=== PATIENT | male | born 1965 | race Caucasian/White ===

== ENCOUNTER 2023-08-23 09:15 | Emergency (ER) | payer OTHER, SELFPAY ==
[2023-08-23 09:18] VITALS: BP 199/108
[2023-08-23 09:30] VITALS: BMI 27.8
[2023-08-23 09:45] LABS: % Basophils 0.6 % (0-2); % Eosinophils 2.3 % (0-6); % Immature Granulocytes 0.4 % (0-0.5); % Lymphocytes 7.9 % (20.5-51.1); % Monocytes 9.7 % (1.7-9.3); % Neutrophils 79.1 % (42.2-75.2); Absolute Basophils 0.1 10^3/uL (0-0.2); Absolute Eosinophils 0.2 10^3/uL (0-0.7); Absolute Lymphocytes 0.7 10^3/uL (1.2-3.4); Absolute Monocytes 0.9 10^3/uL (0.1-0.6); Absolute Neutrophils 7.1 10^3/uL (1.4-6.5); Hematocrit 43.5 % (39.0-52.0); Hemoglobin 15.1 g/dL (13.0-18.0); Mean Corp Hgb Conc. 34.7 g/dL (33.0-37.0); Mean Corpuscular Hgb 30.5 pg (27.0-31.0); Mean Corpuscular Volume 87.9 fL (80.0-94.0); Mean Platelet Volume 9.3 fL (7.4-10.4); Nucleated Red Blood Cells % 0 % (-); Platelet Count 350 10^3/uL (130-400); Red Blood Cell Count 4.95 10^6/uL (4.70-6.10); Red Cell Dist. Width 13.1 % (11.5-14.5)
[2023-08-23 10:00] VITALS: BP 162/112
[2023-08-23 10:04] LABS: COVID-19 Antigen Positive (Negative)
[2023-08-23 10:05] LABS: ALT (SGPT) 20 U/L (0-50); AST (SGOT) 24 U/L (17-59); Albumin 4.5 g/dl (3.5-5.0); Alkaline Phosphatase 93 U/L (38-126); Blood Urea Nitrogen 15 mg/dl (9-20); Calcium 9.8 mg/dl (8.4-10.2); Carbon Dioxide 23 mmol/L (22-30); Chloride 106 mmol/L (98-107); Glucose 99 mg/dl (70-99); Potassium 4.4 mmol/L (3.5-5.1); Sodium 138 mmol/L (135-145); Total Bilirubin 0.5 mg/dl (0.2-1.3); Total Protein 7.3 g/dl (6.3-8.2); eGFR > 60.00
--- NOTE | 2023-08-23 10:10 | ED.GENMED ---
History of Present Illness
General
Chief Complaint: Cold/Flu/URI Symptoms
Source: patient
Exam Limitations: none
Time Seen by Provider: 08/23/23 09:25
History of Present Illness
History of Present Illness:
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 Patient's has COVID he is concerned that he is COVID-positive and is concerned because he
does not have a spleen I recommend that he come to the ER. He does not feel ill. He reports he quit 1 year ago and felt worse and took no medication during that time. He denies any shortness of breath. He has not had a fever. He has nasal
congestion and feels achy. He is drinking and eating.
Past History
Past History
ED Past Medical History: None
ED Past Surgical History: Other (Splenectomy)
Social History
Tobacco: Smoker
Alcohol: Occasional
Drug: None
Personal:
Employment: Employed
Review of Systems
Review of Systems
Allergies reviewed?: Yes
All Other Systems: ROS reviewed and negative except as documented in HPI and ROS
Constitutional: Denies fever
EENT: Reports other (nasal congestion )
Respiratory: Denies cough or trouble breathing
Cardiac: Reports no symptoms
ABD/GI: Reports no symptoms
Musculoskeletal: Reports other (Looks greatmuscle aches )
Skin: Reports no symptoms
Neurological: Reports no symptoms
Hematologic/Lymphatic: Reports no symptoms
Psychiatric: Reports no symptoms
Phy Exam
General Physical Exam
General Presentation: no apparent distress
General age: appears stated age
General Skin: warm and dry
General Habitus: normal
General Mental: alert
General Hydration: appears well hydrated
Cardiovascular Exam
Cardiovascular Exam: regular rate/rhythm, no murmur and normal peripheral pulses
Pulmonary Exam
Pulmonary Exam: lungs clear and no respiratory distress
Neurological Exam
Neurological Exam: alert and oriented x3
Musculoskeletal Exam
Musculoskeletal Exam: full ROM
Skin Exam
Skin Exam: normal color and warm/dry
Psychiatric Exam
Psychiatric Exam: normal mood/affect
Course
Orders/Labs/Results
Orders:
Orders
08/23/23 09:36
CMP [Comprehensive Metabolic Panel] Urgent
COVID-19 Antigen Urgent
Source: Nasal Swab
Complete Blood Count/With Diff Urgent
Abnormal Lab Results
08/23/23
09:36
Absolute Neuts (auto) 7.1 H 10^3/uL
(1.4-6.5)
Absolute Lymphs (auto) 0.7 L 10^3/uL
(1.2-3.4)
Absolute Monos (auto) 0.9 H 10^3/uL
(0.1-0.6)
Neutrophils % 79.1 H %
(42.2-75.2)
Lymphocytes % 7.9 L %
(20.5-51.1)
Monocytes % 9.7 H %
(1.7-9.3)
SARS-CoV-2 Antigen Positive A
(Negative)
08/23/23 09:36
08/23/23 09:36
Vital Signs
Initial and Last Documented VS:
Initial Vital Signs
Temp Pulse Resp BP Pulse Ox
99.8 F 101 16 199/108 97
08/23/23 09:18 08/23/23 09:18 08/23/23 09:18 08/23/23 09:18 08/23/23 09:18
Last Documented Vital Signs
Temp Pulse Resp BP Pulse Ox
99.8 F 101 16 199/108 97
08/23/23 09:18 08/23/23 09:18 08/23/23 09:18 08/23/23 09:18 08/23/23 09:30
MDM/Problems Addressed
MDM/Problems Addressed:
Patient looks well no acute distress COVID-positive here. His was concerned because he has history of splenectomy and with COVID wanted him to be evaluated. He has no acute distress he is nontoxic he denies any fever chills shortness of
breath. He has body aches and congestion. He had COVID a year ago and did not take Paxlovid and did fine. He reports COVID a year ago he felt much worse. He would like a prescription for Paxlovid just in case. Since patient is very
well-appearing this is reasonable he may start if needed. He is very nontoxic looks well not hypoxic. No shortness of breath. Discussed to return if worsening of symptoms.
*Critical Care Note
Total Time (30-74mins, 75-104mins- exclusive of procedures): Not Applicable
ED Attending Note
-
Portions of this chart may have been created with voice recognition software.� Occasional wrong word or��sound alike� substitutions may have occurred due to the inherent limitations of voice recognition software.
Discharge Plan
Departure
Patient Disposition: Home (Routine Discharge)
Date of Disposition: 08/23/23
Time of Disposition: 10:15
Patient with high blood pressure during this ER visit?: Yes
Condition: Fair
Covid-19: Not Applicable
Discharge Problem:
COVID-19
Instructions: COVID-19 ED
Prescriptions:
New
Paxlovid 300 mg (150 mg x 2)-100 mg tablets,dose pack
See Rx Instructions .ROUTE .COMPLEX Qty: 30 0RF
Rx Instructions:
take TWO 150 mg tablets of nirmatrelvir with ONE 100 mg tablet of ritonavir twice daily for 5 days
Activity Restrictions/Additional Instructions:
Patient to get plenty rest stay well-hydrated. You May take Tylenol Motrin for body aches chills. If you decide to start Paxlovid you must take it within 72 hours of start of symptoms and return if any worsening of symptoms including difficulty
breathing or any further concerns.
Interventions
Interventions:
*Risk Screen - Suicide Last Done: 08/23/23 09:18
*General Assessment Last Done: 08/23/23 09:18
*Neglect/Abuse Screening Last Done: 08/23/23 09:18
ED- Fall Risk Assessment Last Done: 08/23/23 09:30
*ED COVID-19 Vaccine History Last Done: 08/23/23 10:09
ED- Pulmonary Assessment Last Done: 08/23/23 09:30
Discharge Date and Time
Print Language: AZERI
--- NOTE | 2023-08-23 10:25 | EDRN ---
Reviewed discharge instructions with patient. Verbalized understanding. Ambulated with steady gait to the lobby.
[2023-08-23 10:26] VITALS: BP 162/110
== END 2023-08-23 10:27 | disposition home or self-care (01) ==
LOC: EMR 09:15
PROVIDERS: EMERGENCY PHYSICIAN Emergency Medicine
DX: U07.1 COVID-19 (principal); F17.200 Nicotine dependence, unspecified, uncomplicated; Z90.81 Acquired absence of spleen
CPT/HCPCS: 99283; 80053; 85025; 87811